=== PATIENT | male | born 1980 | race African-American/Black ===

== ENCOUNTER 2025-03-10 15:01 | Emergency (ER) | payer OTHER, SELFPAY ==
[2025-03-10 15:02] VITALS: BP 156/89; PULSE 55; TEMP 36.4; O2SAT 100; BMI 29.0
--- OUTSIDE RECORDS SUMMARY | 2025-03-10 15:10 | XMS_ITS | Encounter Summary ---
Author Organization [facility] Address [address] [place] [address] Care Team Providers Care Prosthetic Dentist Name Role Phone Nisreen Burris Primary Care Provider Encounter Details Date Type Department Care Team (Late st Contact Info) Description 03/04/2025 External Device Data STL ABSTRACTION Provider, Abstract NO ADDRESS ON FILE Social History Tobacco Use Types Packs/Day Years Used Date Smoking Tobacco: Never Passive Smoke Exposure: Never Alcohol Use Standard Drinks/Week Comments Yes 0 (1 standard drink = 0.6 oz pur e alcohol) Feeling Safe Answer Date Recorded Are you in a relationship wi th someone who hurts you emotionally and/or physically? No 02/14/2025 Sex and Gender Information Value Date Recorded Sex Assigned at Male 01/04/2023 5:34 PM CDT Legal Sex Male 3:20 AM ACURA SALES CONSULTANT Gender Identity Male 01/04/2023 5:34 PM CDT Sexual Orientation Straight 04/03/2023 12 :38 PM ACURA SALES CONSULTANT documented as of this encounter Plan of Treatment Upcoming Encounters Date Type Department Care Team (Late st Contact Info) Description 03/25/2025 3:20 PM ACURA SALES CONSULTANT Office Visit [facility] Family Medicine [place] [address] [place] [address] Anastasia Witt FNP [address] [place] [phone] 08/01/2025 2:30 PM CDT Office Visit [facility] Urology [address] [place] [address] Shonna Piper, SPECIAL EDUCATION PARA PROFESSIONAL [address] [facility] [address] [place] [address] documented as of this encounter Visit Diagnoses Not on filedocumented in this encounter Care Teams Prosthetic Dentist Relationship Specialty Start Date End Date Nisreen Burris DO [address] [place] [phone] PCP - General 03/06/09 documented as of this encounter
--- OUTSIDE RECORDS SUMMARY | 2025-03-10 15:10 | XMS_ITS | Encounter Summary ---
Author Organization [facility] Address [address] [place] [address] Care Team Providers Care Image Archivist Name Role Phone Fatuma, Nisreen L DO Primary Care Provider Reason for Referral * CT Scan (Routine) - Closed Specialty Diagnoses / Procedures Referred By Rusty t Referred To Contact Radiology Diagnoses Abnormal ultrasound Procedures CT ABDOMEN PELVIS W CONTRAST Jacey July, RUGBY UNION FOOTBALLER [address] [place] [address] Phone: tel: fax: [facility] CT Scan [place] [address] [place] [address] Phone: tel: fax: Referral ID Status Reason Start Date Expiration Date V isits Requested Visits Authorized [id number] Closed [facility] View CTS to Schedule 01/16/2025 02/16/2026 1 1 Encounter Details Date Type Department Care Team (Late st Contact Info) Description 01/16/2025 Results Follow-Up [facility] Medicine [place] [address] [place] [address] Jacey July, SCOTT [address] [place] [address] US ABDOMEN LIMITED Social History Tobacco Use Types Packs/Day Years Used Date Smoking Tobacco: Never Passive Smoke Exposure: Never Alcohol Use Standard Drinks/Week Comments Yes 0 (1 standard drink = 0.6 oz pur e alcohol) Feeling Safe Answer Date Recorded Are you in a relationship wi th someone who hurts you emotionally and/or physically? No 03/15/2023 Sex and Gender Information Value Date Recorded Sex Assigned at Male 01/04/2023 5:34 PM CDT Legal Sex Male 3:20 AM SPRING MAKER Gender Identity Male 01/04/2023 5:34 PM CDT Sexual Orientation Straight 04/03/2023 12 :38 PM SPRING MAKER documented as of this encounter Plan of Treatment Upcoming Encounters Date Type Department Care Team (Late st Contact Info) Description 03/25/2025 3:20 PM SPRING MAKER Office Visit [facility] Medicine [place] [address] [place] [address] [facility] [address] [place] [phone] 08/01/2025 2:30 PM CDT Office Visit [facility] Urology [address] [place] [phone] Shonna Piper, [address] [place] [phone] documented as of this encounter Results * CT ABDOMEN PELVIS W CONTRAST (01/24/2025 1:11 PM CDT) Anatomical Region Laterality Modality Abdomen Computed Tomogra phy 01/24/2025 12:4 6 PM CDT Impressions 01/24/2025 3:23 PM CDT IMPRESSION: There is a nonspecific round low-density walled off 3.9 cm abnormality in the left lower quadrant anterolateral to the left external iliac artery consistent with the abnormality noted on ultrasound. This is either a complex fluid collection or possibly necrotic mass. Tissue sampling is recommended. Narrative 01/24/2025 3:23 PM CDT Exam: CT ABDOMEN PELVIS W CONTRAST Date/Time of Exam: 01/24/2025 1:11 PM Reason For Exam: Abnormal ultrasound, Complex echogenicity mass along the distal left iliac vasculature. Diagnosis: Abnormal ultrasound. Technique: CT of the abdomen was performed following the administration of intravenous contrast. Contrast: 95 mL Isovue-300 Findings: Comparison is made to the ultrasound of the left inguinal region from 01/15/[address] of 08/24/2007. There is mild left basilar scarring and/or atelectasis. The lung bases are otherwise clear. Heart size is within normal limits. No significant abnormality of the liver, spleen, pancreas, gallbladder or bile ducts is noted. No abnormality of the adrenal glands or left kidney is noted. There is a tiny right renal cyst. There are no abnormally dilated loops of bowel. There is no evidence for appendicitis. No pericolonic inflammatory change is noted. No free air or free fluid is noted. The urinary bladder is unremarkable. There is a nonspecific round low-density walled off 2.8 x 2.9 x 3.9 cm abnormality in the left lower quadrant anterolateral to the left external iliac artery. No pathologic adenopathy is noted. There is a retroaortic left renal vein. The aortoiliac arteries are unremarkable. No concerning bony abnormality is noted. Procedure Note Caroline Gibbs MD - 01/24/2025 Exam: CT ABDOMEN PELVIS W CONTRAST Date/Time of Exam: 01/24/2025 1:11 PM Reason For Exam: Abnormal ultrasound, Complex echogenicity mass along the distal left iliac vasculature. Diagnosis: Abnormal ultrasound. Technique: CT of the abdomen was performed following the administration of intravenous contrast. Contrast: 95 mL Isovue-300 Findings: Comparison is made to the ultrasound of the left inguinal region from 01/15/[address] of 08/24/2007. There is mild left basilar scarring and/or atelectasis. The lung bases are otherwise clear. Heart size is within normal limits. No significant abnormality of the liver, spleen, pancreas, gallbladder or bile ducts is noted. No abnormality of the adrenal glands or left kidney is noted. There is a tiny right renal cyst. There are no abnormally dilated loops of bowel. There is no evidence for appendicitis. No pericolonic inflammatory change is noted. No free air or free fluid is noted. The urinary bladder is unremarkable. There is a nonspecific round low-density walled off 2.8 x 2.9 x 3.9 cm abnormality in the left lower quadrant anterolateral to the left external iliac artery. No pathologic adenopathy is noted. There is a retroaortic left renal vein. The aortoiliac arteries are unremarkable. No concerning bony abnormality is noted. IMPRESSION: There is a nonspecific round low-density walled off 3.9 cm abnormality in the left lower quadrant anterolateral to the left external iliac artery consistent with the abnormality noted on ultrasound. This is either a complex fluid collection or possibly necrotic mass. Tissue sampling is recommended. July [facility] CT ORDERABLES Final Result documented in this encounter Visit Diagnoses Diagnosis Abnormal ultrasound- Primary Other nonspecific (abnormal) findings on radiological and other examinations of body structure Abnormal ultrasound Other nonspecific (abnormal) findings on radiological and other examinations of body structure documented in this encounter Care Teams Image Archivist Relationship Specialty Start Date End Date Nisreen Burris DO [address] [place] [address] PCP - General 03/06/09 documented as of this encounter
--- OUTSIDE RECORDS SUMMARY | 2025-03-10 15:10 | XMS_ITS | Encounter Summary ---
Author Organization [facility] Address [address] [place] [address] Care Team Providers Care Certified Physician'S Assistant Name Role Phone FatumaNisreen cruz Primary Care Provider Encounter Details Date Type Department Care Team (Late st Contact Info) Description 03/12/2008 Emergency [facility] Emergency Department [address] [place] [phone] Ed, Physician NO ADDRESS ON FILE Harry Galloway DO NO ADDRESS ON FILE Social History Tobacco Use Types Packs/Day Years Used Date Smoking Tobacco: Never Assessed Sex and Gender Information Value Date Recorded Sex Assigned at Not on file Legal Sex Male 6:57 AM ASP WEB DEVELOPER Gender Identity Not on file Sexual Orientation Not on file documented as of this encounter Plan of Treatment Not on file documented as of this encounter Procedures Procedure Name Priority Date/Time Associated Diagnosis Comments CTA CHEST W WO CONTRAST Routine 03/12/2008 3:59 PM ASP WEB DEVELOPER POC CREATININE Routine 03/12/2008 2:43 PM ASP WEB DEVELOPER CBC WITH DIFFERENTIAL Stat 03/12/2008 2:25 PM ASP WEB DEVELOPER documented in this encounter Results * CTA CHEST W WO CONTRAST (03/12/2008 3:59 PM ASP WEB DEVELOPER) Anatomical Region Laterality Modality Chest Other 03/12/2008 3:59 PM ASP WEB DEVELOPER Narrative 03/12/2008 4:25 PM ASP WEB DEVELOPER Exam: CTA Chest Date/Time of Exam: Mar 12, 2008 3:59:04 PM History: Pulmonary embolus. Chest pain. History of aortic trauma. Hypertension. Technique: The examination was performed prior to and following bolus administration of 100 mL Optiray 350 intravenous contrast. Comparison: 08/24/2007. Findings: Precontrast images show surgical repair of aortic injury documented previously. No acute aortic pathology on today's study. Increased attenuation in the anterior mediastinum is probably residual thymic tissue or scarring postoperatively. Heart size upper limits of normal. Lungs show no consolidation, effusion or pneumothorax. Mild dependent atelectatic change or fibrosis in the left base. Postcontrast images again show no acute aortic pathology. There is suboptimal opacification of the pulmonary arterial tree for detection of pulmonary embolus but with no gross central pulmonary emboli identified. Lobar and segmental vessels cannot be evaluated due to admixture of contrast material and blood. Impression: No acute aortic pathology detected post prior surgical repair. Equivocal increased attenuation in the anterosuperior mediastinum may be residual thymic tissue versus fibrosis postoperatively. Inadequate examination for detection of pulmonary embolus due to suboptimal opacification of the pulmonary arteries. No large central pulmonary emboli are evident. Lobar and segmental pulmonary arteries cannot be evaluated due to contrast/blood admixture. Repeat study or ventilation/perfusion scintigraphy could be considered if there remains high clinical suspicion for distal pulmonary embolus. - Dictated By: Sebastian Ness D.O. Electronically Signed By: Sebastian Ness D.O. Date Signed: 03/12/08 Procedure Note Sebastian Ness - 03/12/2008 Exam: CTA Chest Date/Time of Exam: Mar 12, 2008 3:59:04 PM History: Pulmonary embolus. Chest pain. History of aortic trauma.Hypertension. Technique: The examination was performed prior to and following bolusadministration of 100 mL Optiray 350 intravenous contrast. Comparison: 08/24/2007. Findings: Precontrast images show surgical repair of aortic injurydocumented previously. No acute aortic pathology on today's study. Increased attenuation in the anteriormediastinum is probably residual thymic tissue or scarring postoperatively. Heart size upper limits ofnormal. Lungs show no consolidation, effusion or pneumothorax. Mild dependent atelectatic changeor fibrosis in the left base. Postcontrast images again show no acute aortic pathology. There issuboptimal opacification of the pulmonary arterial tree for detection of pulmonary embolus but with nogross central pulmonary emboli identified. Lobar and segmental vessels cannot be evaluated due toadmixture of contrast material and blood. Impression: No acute aortic pathology detected post prior surgical repair.Equivocal increased attenuation in the anterosuperior mediastinum may be residual thymictissue versus fibrosis postoperatively. Inadequate examination for detection of pulmonary embolusdue to suboptimal opacification of the pulmonary arteries. No large central pulmonary emboliare evident. Lobar and segmental pulmonary arteries cannot be evaluated due to contrast/bloodadmixture. Repeat study or ventilation/perfusion scintigraphy could be considered if there remainshigh clinical suspicion for distal pulmonary embolus. - Dictated By: Sebastian Ness D.O. Electronically Signed By: Sebastian Ness D.O. Date Signed: 03/12/08 us Harry Galloway DO CT ORDERABLES Final Result * POC CREATININE (03/12/2008 2:43 PM ASP WEB DEVELOPER) [facility] CREATININE POC 1.2 0.7 - 1.5 mg/dL [facility] Capillary blood specimen (specimen) 03/12/2008 2:43 PM ASP WEB DEVELOPER 03/12/2008 2:40 PM ASP WEB DEVELOPER us Harry Galloway DO POINT OF CARE TESTING Final Res ult INTERFACE SYSTEM Refer to clinic/hospital department [facility] CLIA# [id number] [address] [place] [id number] * (ABNORMAL) CBC WITH DIFFERENTIAL (03/12/2008 2:25 PM ASP WEB DEVELOPER) [facility] MONOCYTE ABSOLUTE 0.9(H) 0.1 - 0.6 K/ul [facility] MONOCYTES 12.8(H) 2.0 - 10.0 % [facility] WBC 7.1 4.5 - 11.0 K/ul [facility] MCH 25.0(L) 27.0 - 34.0 pg [facility] NEUTROPHIL ABSOLUTE 4.6 2.0 - 8.0 K/ul [facility] NEUTROPHILS 64.4 42.2 - 75.2 % [facility] HEMATOCRIT 39.7(L) 41.0 - 53.0 % [facility] EOSINOPHILS 1.5 0.0 - 7.0 % [facility] PLATELETS 219 140 - 440 K/ul [facility] EOSINOPHIL ABSOLUTE 0.1 0.0 - 0.7 K/ul [facility] RBC 5.11 4.60 - 6.20 Mil/ul [facility] LYMPHOCYTES 21.2(L) 24.0 - 44.0 % [facility] MCHC 32.2 30.0 - 35.0 g/dL [facility] LYMPHOCYTE ABSOLUTE 1.5 1.2 - 4.0 K/ul [facility] MCV 77.7(L) 84.0 - 103.0 Fl [facility] MPV 9.6 8.9 - 12.8 Fl [facility] BASOPHILS ABSOLUTE 0.0 0.0 - 0.2 K/ul [facility] BASOPHILS 0.1 0.0 - 1.0 % [facility] HEMOGLOBIN 12.8(L) 14.0 - 18.0 g/dL [facility] RDW 13.9 11.0 - 14.5 % [facility] Blood specimen (specimen) 03/12/2008 2:25 PM ASP WEB DEVELOPER 03/12/2008 2:45 PM ASP WEB DEVELOPER us Harry Galloway DO HEMATOLOGY ORDERABLES Final Res ult INTERFACE SYSTEM Refer to clinic/hospital department [facility] CLIA# [id number] [address] [place] [address] documented in this encounter Visit Diagnoses Not on filedocumented in this encounter Care Teams Certified Physician'S Assistant Relationship Specialty Start Date End Date Nisreen Burris DO [address] [place] [address] PCP - General 03/06/09 documented as of this encounter
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
--- OUTSIDE RECORDS SUMMARY | 2025-03-10 15:10 | XMS_ITS | Encounter Summary ---
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 of the cardiac silhouette is present. The left lower lobe is opacified with some air bronchograms noted. Mild opacity and volume loss are present in the right lower lobe. Multiple left rib fractures are present. Impression: 1. Opacity persists throughout the left lower lung, probably reflecting left lower lobe collapse and consolidation. Mild infiltrates or atelectasis persists in the right lower lobe. The study is largely unchanged compared with August 25, however shows definite worsening compared to August 24. - Dictated By: Hugh Lee M.D. Electronically Signed By: Hugh Lee M.D. Date Signed: 08/27/07 Procedure Note Hugh Lee - 08/27/2007 The left chest tube is directed toward the apex. A second left chest isdirected toward the hilum. Mild enlargement of the cardiac silhouette is present. The left lower lobe isopacified with some air bronchograms noted. Mild opacity and volume loss are present in the rightlower lobe. Multiple left rib fractures are present. Impression: 1. Opacity persists throughout the left lower lung, probably reflectingleft lower lobe collapse and consolidation. Mild infiltrates or atelectasis persists in the right lowerlobe. The study is largely unchanged compared with August 25, however shows definite worseningcompared to August 24. - Dictated By: Hugh Lee M.D. Electronically Signed By: Hugh Lee M.D. Date Signed: 08/27/07 us Harry Borjas MD DIAGNOSTIC IMAGING ORDERABLES Final Result * (ABNORMAL) POC GLUCOSE (08/26/2007 11:03 PM CDT) [facility] GLUCOSE POC 142(H) 60 - 100 mg/dL [facility] Venous blood specimen (specimen) 08/26/2007 11:03 PM CDT 08/29/2007 6:25 AM CDT us Harry Borjas MD POINT OF CARE TESTING Final R esult [facility] [address] [place] [address] * (ABNORMAL) CBC WITH DIFFERENTIAL (08/26/2007 9:28 PM CDT) [facility] BASOPHILS ABSOLUTE 0.0 0.0 - 0.2 K/ul [facility] WBC 10.6 4.5 - 11.0 K/ul [facility] NEUTROPHILS 80.1(H) 42.2 - 75.2 % [facility] MCH 25.2(L) 27.0 - 34.0 pg [facility] LYMPHOCYTE ABSOLUTE 0.9(L) 1.2 - 4.0 K/ul [facility] HEMATOCRIT 26.4(L) 41.0 - 53.0 % [facility] PLATELETS 150 140 - 440 K/ul [facility] BASOPHILS 0.1 0.0 - 1.0 % [facility] RBC 3.33(L) 4.60 - 6.20 Mil/ul [facility] MCHC 31.8 30.0 - 35.0 g/dL [facility] MONOCYTE ABSOLUTE 1.3(H) 0.1 - 0.6 K/ul [facility] LYMPHOCYTES 8.0(L) 24.0 - 44.0 % [facility] PERIPHERAL BLOOD SMEAR REVIEW Automated Diff [facility] MCV 79.3(L) 84.0 - 103.0 Fl [facility] NEUTROPHIL ABSOLUTE 8.5(H) 2.0 - 8.0 K/ul [facility] MPV 9.7 8.9 - 12.8 Fl [facility] HEMOGLOBIN 8.4(L) 14.0 - 18.0 g/dL [facility] MONOCYTES 11.8(H) 2.0 - 10.0 % [facility] RDW 14.4 11.0 - 14.5 % [facility] Blood specimen (specimen) 08/26/2007 9:28 PM CDT 08/26/2007 9:32 PM CDT us Harry Borjas MD HEMATOLOGY ORDERABLES Final R esult [facility] [address] [place] [address] * MAGNESIUM LEVEL (08/26/2007 9:28 PM CDT) MAGNESIUM 2.4 1.7 - 2.4 mg/dL [facility] Blood specimen (specimen) 08/26/2007 9:28 PM CDT 08/26/2007 9:32 PM CDT us Harry Borjas MD CHEMISTRY ORDERABLES Final Re sult Performing Organization Address [facility] Number [facility] [address] [place] [address] * POTASSIUM LEVEL (08/26/2007 9:28 PM CDT) POTASSIUM 4.8 3.5 - 5.0 mEq/L [facility] Blood specimen (specimen) 08/26/2007 9:28 PM CDT 08/26/2007 9:32 PM CDT us Harry Borjas MD CHEMISTRY ORDERABLES Final Re sult Performing Organization Address [facility] Phone Number [facility] [address] [place] [address] * (ABNORMAL) POC GLUCOSE (08/26/2007 4:56 PM CDT) [facility] GLUCOSE POC 101(H) 60 - 100 mg/dL [facility] Venous blood specimen (specimen) 08/26/2007 4:56 PM CDT 08/29/2007 6:25 AM CDT us Harry Borjas MD POINT OF CARE TESTING Final R esult Performing Organization Address [facility] Phone Number [facility] [address] [place] [address] * (ABNORMAL) POC GLUCOSE (08/26/2007 11:12 AM CDT) GLUCOSE POC 133(H) 60 - 100 mg/dL [facility] Venous blood specimen (specimen) 08/26/2007 11:12 AM CDT 08/29/2007 7:14 AM CDT us Harry Borjas MD POINT OF CARE TESTING Final R domenico Performing Organization Address [facility] de Phone Number [facility] [address] [place] [address] * (ABNORMAL) POC GLUCOSE (08/26/2007 5:07 AM CDT) GLUCOSE POC 122(H) 60 - 100 mg/dL [facility] Venous blood specimen (specimen) 08/26/2007 5:07 AM CDT 08/29/2007 6:25 AM CDT us Harry Borjas MD POINT OF CARE TESTING Final R domenico Performing Organization Address [facility] de Phone Number [facility] [address] [place] [address] * (ABNORMAL) BASIC METABOLIC PANEL (08/26/2007 3:57 AM CDT) BUN 13 9 - 20 mg/dL [facility] CO2 26 22 - 32 mmol/l [facility] POTASSIUM 4.6 3.5 - 5.0 mEq/L [facility] OSMOLALITY, CALCULATED 298(H) 275 - 295 mOsm/Kg [facility] CREATININE 1.2 0.7 - 1.5 mg/dL [facility] CALCIUM 8.0(L) 8.4 - 10.5 mg/dL [facility] GLUCOSE 118(H) 70 - 110 mg/dL [facility] CHLORIDE 107 95 - 110 mEq/L [facility] ANION GAP 16 9 - 20 mEq/L [facility] SODIUM 144 136 - 145 mEq/L [facility] Blood specimen (specimen) 08/26/2007 3:57 AM CDT 08/26/2007 4:04 AM CDT us Harry Borjas MD CHEMISTRY ORDERABLES Final Re sult Performing Organization Address [facility] de Phone Number [facility] [address] [place] [address] * (ABNORMAL) CBC WITH DIFFERENTIAL (08/26/2007 3:57 AM CDT) MCV 79.0(L) 84.0 - 103.0 Fl [facility] BASOPHILS 0.1 0.0 - 1.0 % [facility] MPV 9.7 8.9 - 12.8 Fl [facility] BASOPHILS ABSOLUTE 0.0 0.0 - 0.2 K/ul [facility] HEMOGLOBIN 8.4(L) 14.0 - 18.0 g/dL [facility] MONOCYTES 11.6(H) 2.0 - 10.0 % [facility] RDW 14.5 11.0 - 14.5 % [facility] MONOCYTE ABSOLUTE 1.0(H) 0.1 - 0.6 K/ul [facility] WBC 8.9 4.5 - 11.0 K/ul [facility] NEUTROPHILS 80.5(H) 42.2 - 75.2 % [facility] MCH 25.6(L) 27.0 - 34.0 pg [facility] NEUTROPHIL ABSOLUTE 7.2 2.0 - 8.0 K/ul [facility] HEMATOCRIT 25.9(L) 41.0 - 53.0 % [facility] PLATELETS 127(L) 140 - 440 K/ul [facility] EOSINOPHIL ABSOLUTE 0.0 0.0 - 0.7 K/ul [facility] EOSINOPHILS 0.1 0.0 - 7.0 % [facility] PERIPHERAL BLOOD SMEAR REVIEW Automated Diff [facility] RBC 3.28(L) 4.60 - 6.20 Mil/ul [facility] MCHC 32.4 30.0 - 35.0 g/dL [facility] LYMPHOCYTE ABSOLUTE 0.7(L) 1.2 - 4.0 K/ul [facility] LYMPHOCYTES 7.7(L) 24.0 - 44.0 % [facility] Blood specimen (specimen) 08/26/2007 3:57 AM CDT 08/26/2007 4:04 AM CDT us Harry Borjas MD HEMATOLOGY ORDERABLES Final R esult [facility] [address] [place] [address] * XR CHEST PA OR AP (08/26/2007 3:43 AM CDT) Anatomical Region Laterality Modality Chest Other 08/26/2007 3:43 AM CDT Narrative 08/26/2007 12:39 PM CDT Exam: Chest - Portable Date/Time of Exam: Aug 26, 2007 3:43:04 AM History: Post-operative. Findings: Comparison dated 08/25/07 at 0350 hours. Two chest tubes remain in place on the left. There has been interval increase in atelectasis in the left lower lobe. The cardiac silhouette appears generous but this appearance is probably accentuated by atelectatic collapse of the medial portion of the lingula against the left heart border. I see no evidence of pneumothorax. - Dictated By: Cole Ruelas M.D. Electronically Signed By: Cole Ruelas M.D. Date Signed: 08/26/07 GRB Procedure Note Emilio Ruelas - 08/26/2007 Exam: Chest - Portable Date/Time of Exam: Aug 26, 2007 3:43:04 AM History: Post-operative. Findings: Comparison dated 08/25/07 at 0350 hours. Two chest tubes remainin place on the left. There has been interval increase in atelectasis in the left lower lobe. The cardiacsilhouette appears generous but this appearance is probably accentuated by atelectatic collapse of themedial portion of the lingula against the left heart border. I see no evidence of pneumothorax. - Dictated By: Cole Ruelas M.D. Electronically Signed By: Cole Ruelas M.D. Date Signed: 08/26/07 GRB us Harry Borjas MD DIAGNOSTIC IMAGING ORDERABLES Final Result * (ABNORMAL) POC GLUCOSE (08/25/2007 11:49 PM CDT) GLUCOSE POC 136(H) 60 - 100 mg/dL [facility] Venous blood specimen (specimen) 08/25/2007 11:49 PM CDT 08/27/2007 6:05 PM CDT Harry Borjas MD POINT OF CARE TESTING Final R esult Performing Organization Address [facility] Co de Phone Number [facility] [address] [place] [address] * POC GLUCOSE (08/25/2007 6:24 PM CDT) GLUCOSE POC 98 60 - 100 mg/dL [facility] Venous blood specimen (specimen) 08/25/2007 6:24 PM CDT 08/27/2007 6:05 PM CDT us Harry Borjas MD POINT OF CARE TESTING Final R esult Performing Organization Address [facility] de Phone Number [facility] [address] [place] [address] * (ABNORMAL) POC GLUCOSE (08/25/2007 2:53 PM CDT) GLUCOSE POC 113(H) 60 - 100 mg/dL [facility] Venous blood specimen (specimen) 08/25/2007 2:53 PM CDT 08/27/2007 6:05 PM CDT Harry Borjas MD POINT OF CARE TESTING Final R esult Performing Organization Address [facility] de Phone Number [facility] [address] [place] [address] * POC GLUCOSE (08/25/2007 1:53 PM CDT) GLUCOSE POC 89 60 - 100 mg/dL [facility] Venous blood specimen (specimen) 08/25/2007 1:53 PM CDT 08/27/2007 6:05 PM CDT us Harry Borjas MD POINT OF CARE TESTING Final R esult Performing Organization Address [facility] Phone Number [facility] [address] [place] [address] * (ABNORMAL) POC GLUCOSE (08/25/2007 12:52 PM CDT) GLUCOSE POC 114(H) 60 - 100 mg/dL [facility] Venous blood specimen (specimen) 08/25/2007 12:52 PM CDT 08/27/2007 6:05 PM CDT us Harry Borjas MD POINT OF CARE TESTING Final [facility] Performing Organization Address [facility] Phone Number [facility] [address] [place] [address] * (ABNORMAL) POC GLUCOSE (08/25/2007 11:47 AM CDT) GLUCOSE POC 101(H) 60 - 100 mg/dL [facility] Venous blood specimen (specimen) 08/25/2007 11:47 AM CDT 08/27/2007 6:05 PM CDT us Harry Borjas MD POINT OF CARE TESTING Final R domenico Performing Organization Address [facility] de Phone Number [facility] [address] [place] [address] * (ABNORMAL) POC GLUCOSE (08/25/2007 10:59 AM CDT) GLUCOSE POC 101(H) 60 - 100 mg/dL [facility] Venous blood specimen (specimen) 08/25/2007 10:59 AM CDT 08/27/2007 6:05 PM CDT us Harry Borjas MD POINT OF CARE TESTING Final R esult Performing Organization Address [facility] de Phone Number [facility] [address] [place] [address] * (ABNORMAL) POC GLUCOSE (08/25/2007 10:16 AM CDT) GLUCOSE POC 101(H) 60 - 100 mg/dL [facility] Venous blood specimen (specimen) 08/25/2007 10:16 AM CDT 08/27/2007 6:05 PM CDT us Harry Borjas MD POINT OF CARE TESTING Final [facility] Performing Organization Address [facility] de Phone Number [facility] [address] [place] [address] * (ABNORMAL) POC GLUCOSE (08/25/2007 9:10 AM CDT) GLUCOSE POC 133(H) 60 - 100 mg/dL [facility] Venous blood specimen (specimen) 08/25/2007 9:10 AM CDT 08/29/2007 6:25 AM CDT us Harry Borjas MD POINT OF CARE TESTING Final [facility] Performing Organization Address [facility] de Phone Number [facility] [address] [place] [address] * (ABNORMAL) POC GLUCOSE (08/25/2007 7:56 AM CDT) GLUCOSE POC 121(H) 60 - 100 mg/dL [facility] Venous blood specimen (specimen) 08/25/2007 7:56 AM CDT 08/27/2007 6:05 PM CDT us Harry Borjas MD POINT OF CARE TESTING Final [facility] Performing Organization Address [facility] de Phone Number [facility] [address] [place] [address] * XR CHEST PA OR AP (08/25/2007 6:03 AM CDT) Anatomical Region Laterality Modality Chest Other 08/25/2007 6:03 AM CDT Narrative 08/25/2007 11:31 AM CDT Exam: Chest - Portable Date/Time of Exam: Aug 25, 2007 6:03:05 AM History: Post-operative. Findings: Comparison dated 08/25/2007 at 0032 hours. The ET tube and a left-sided chest tube remain in place. The left costophrenic angle is excluded from the radiograph. Postoperative changes of left thoracotomy are again noted. I do not see a pneumothorax. The cardiac silhouette is stable and within normal limits. The right lung remains essentially clear with the exception of some vague opacity at the right costophrenic angle which could represent minimal pleural fluid or a small amount of atelectasis. - Dictated By: Cole Ruelas M.D. Electronically Signed By: Cole Ruelas M.D. Date Signed: 08/25/07 GRB Procedure Note Emilio Ruelas - 08/25/2007 Exam: Chest - Portable Date/Time of Exam: Aug 25, 2007 6:03:05 AM History: Post-operative. Findings: Comparison dated 08/25/2007 at 0032 hours. The ET tube and aleft-sided chest tube remain in place. The left costophrenic angle is excluded from the radiograph.Postoperative changes of left thoracotomy are again noted. I do not see a pneumothorax. The cardiacsilhouette is stable and within normal limits. The right lung remains essentially clear with the exceptionof some vague opacity at the right costophrenic angle which could represent minimal pleural fluid or asmall amount of atelectasis. - Dictated By: Cole Ruelas M.D. Electronically Signed By: Cole Ruelas M.D. Date Signed: 08/25/07 GRB Harry Borjas MD DIAGNOSTIC IMAGING ORDERABLES Final Result * (ABNORMAL) POC GLUCOSE (08/25/2007 5:28 AM CDT) Pathologist [facility] GLUCOSE POC 150(H) 60 - 100 mg/dL [facility] Venous blood specimen (specimen) 08/25/2007 5:28 AM CDT 08/29/2007 6:25 AM CDT us Harry Borjas MD POINT OF CARE TESTING Final R esult Performing Organization Address [facility] de Phone Number [facility] [address] [place] [address] * MRSA CULTURE (08/25/2007 3:26 AM CDT) FINAL REPORT Culture screen for MRSA negative INTERFACE SYSTEM 08/25/2007 3:26 AM CDT 08/25/2007 4:57 AM CDT us Harry Borjas MD MICROBIOLOGY - GENERAL ORDERA BLES Final Result Performing Organization Address [facility] Phone Number INTERFACE SYSTEM Refer to clinic/hospital department * (ABNORMAL) BASIC METABOLIC PANEL (08/25/2007 3:26 AM CDT) ANION GAP 12 9 - 20 mEq/L [facility] SODIUM 141 136 - 145 mEq/L [facility] BUN 14 9 - 20 mg/dL [facility] CO2 24 22 - 32 mmol/l [facility] POTASSIUM 4.9 3.5 - 5.0 mEq/L [facility] OSMOLALITY, CALCULATED 295 275 - 295 mOsm/Kg [facility] CREATININE 1.4 0.7 - 1.5 mg/dL [facility] CALCIUM 7.9(L) 8.4 - 10.5 mg/dL [facility] GLUCOSE 161(H) 70 - 110 mg/dL [facility] CHLORIDE 110 95 - 110 mEq/L [facility] Blood specimen (specimen) 08/25/2007 3:26 AM CDT 08/25/2007 3:31 AM CDT us Harry Borjas MD CHEMISTRY ORDERABLES Final Re sult Performing Organization Address [facility] de Phone Number [facility] [address] [place] [address] * (ABNORMAL) CBC WITH DIFFERENTIAL (08/25/2007 3:26 AM CDT) MONOCYTE ABSOLUTE 0.9(H) 0.1 - 0.6 K/ul [facility] WBC 9.3 4.5 - 11.0 K/ul [facility] NEUTROPHILS 78.7(H) 42.2 - 75.2 % [facility] MCH 25.1(L) 27.0 - 34.0 pg [facility] NEUTROPHIL ABSOLUTE 7.3 2.0 - 8.0 K/ul [facility] HEMATOCRIT 32.4(L) 41.0 - 53.0 % [facility] PLATELETS 162 140 - 440 K/ul [facility] EOSINOPHIL ABSOLUTE 0.0 0.0 - 0.7 K/ul [facility] EOSINOPHILS 0.1 0.0 - 7.0 % [facility] RBC 4.15(L) 4.60 - 6.20 Mil/ul [facility] MCHC 32.1 30.0 - 35.0 g/dL [facility] LYMPHOCYTE ABSOLUTE 1.0(L) 1.2 - 4.0 K/ul [facility] LYMPHOCYTES 10.9(L) 24.0 - 44.0 % [facility] MCV 78.1(L) 84.0 - 103.0 Fl [facility] BASOPHILS 0.2 0.0 - 1.0 % [facility] MPV 9.9 8.9 - 12.8 Fl [facility] BASOPHILS ABSOLUTE 0.0 0.0 - 0.2 K/ul [facility] HEMOGLOBIN 10.4(L) 14.0 - 18.0 g/dL [facility] MONOCYTES 10.1(H) 2.0 - 10.0 % [facility] RDW 14.2 11.0 - 14.5 % [facility] Blood specimen (specimen) 08/25/2007 3:26 AM CDT 08/25/2007 3:31 AM CDT us Harry Borjas MD HEMATOLOGY ORDERABLES Final R eskate Performing Organization Address [facility] Co de Phone Number [facility] [address] [place] [address] * (ABNORMAL) POC GLUCOSE (08/25/2007 2:25 AM CDT) GLUCOSE POC 159(H) 60 - 100 mg/dL [facility] Venous blood specimen (specimen) 08/25/2007 2:25 AM CDT 08/29/2007 6:25 AM CDT Harry Borjas MD POINT OF CARE TESTING Final Greg acuña Performing Organization Address [facility] de Phone Number [facility] [address] [place] [address] * XR CHEST PA OR AP (08/25/2007 12:33 AM CDT) Anatomical Region Laterality Modality Chest Other 08/25/2007 12:3 3 AM CDT Narrative 08/26/2007 7:10 AM CDT Ordered by Tom Smith Exam: Chest - Portable Date/Time of Exam: Aug 25, 2007 12:33:00 AM History: Intra-operative. Findings: Comparison dated 08/25/07 at 0032 hours. The left-sided chest tubes are stable. The cardiac silhouette is unchanged. Surgical skin clips are again noted over the upper left hemithorax. There is some minimal volume loss or atelectasis persistent in the mid right lung. Mild prominence of the width of the superior mediastinum and irregular delineation of the left margin of the superior mediastinum are again noted. - Dictated By: Cole Ruelas M.D. Electronically Signed By: Cole Ruelas M.D. Date Signed: 08/26/07 GRB Procedure Note Emilio Ruelas - 08/26/2007 Ordered by Tom Smith Exam: Chest - Portable Date/Time of Exam: Aug 25, 2007 12:33:00 AM History: Intra-operative. Findings: Comparison dated 4/26/08 at 0032 hours. The left-sided chesttubes are stable. The cardiac silhouette is unchanged. Surgical skin clips are again noted over theupper left hemithorax. There is some minimal volume loss or atelectasis persistent in the mid right lung.Mild prominence of the width of the superior mediastinum and irregular delineation of the left margin ofthe superior mediastinum are again noted. - Dictated By: Cole Ruelas M.D. Electronically Signed By: Cole Ruelas M.D. Date Signed: 08/26/07 [facility] Historical Provider DIAGNOSTIC IMAGING ORDERABLE S Final Result * XR CHEST PA OR AP (08/24/2007 7:00 PM CDT) Anatomical Region Laterality Modality Chest Other 08/24/2007 7:00 PM CDT Narrative 07/02/2008 12:59 PM [employer] DIRECT[employer] AP pelvis, 3 views right wrist, PA chest: 08/24/2007No apparent acute osseous injury or subluxation of right wrist. Mild negative ulnar variance. Given artifact from overlying trauma board, no gross evidence for acute osseous injury of pelvis. Both femur heads normally located. Prominent superior mediastinum. Cardiovascular silhouette otherwise unremarkable. Lungs grossly unremarkable. Impression: Prominent superior mediastinum of which further evaluation with CT may be of benefit as clinically warranted. - Dictated By: Elaine Witt M.D. Electronically Signed By: Elaine Witt M.D. Date Signed: 08/24/07 Procedure Note Provider, Historical - 07/03/2008 AP pelvis, 3 views right wrist, PA chest: 08/24/2007No apparent acute osseous injury or subluxation of right wrist.Mild negative ulnar variance. Given artifact from overlying trauma board, no gross evidence for acuteosseous injury of pelvis. Both femur heads normally located. Prominent superior mediastinum.Cardiovascular silhouette otherwise unremarkable. Lungs grossly unremarkable. Impression: Prominent superior mediastinum of which further evaluation with CT may beof benefit as clinically warranted. - Dictated By: Elaine Witt M.D. Electronically Signed By: Elaine Witt M.D. Date Signed: 08/24/07 us Physician Sj Ed DIAGNOSTIC IMAGING ORDERABLES Fi nal Result * XR WRIST 3+ VW RIGHT (08/24/2007 7:00 PM CDT) Anatomical Region Laterality Modality Wrist / Hand Other 08/24/2007 7:00 PM CDT Narrative 07/07/2008 5:16 AM CDT AP pelvis, 3 views right wrist, PA chest: 08/24/2007No apparent acute osseous injury or subluxation of right wrist. Mild negative ulnar variance. Given artifact from overlying trauma board, no gross evidence for acute osseous injury of pelvis. Both femur heads normally located. Prominent superior mediastinum. Cardiovascular silhouette otherwise unremarkable. Lungs grossly unremarkable. Impression: Prominent superior mediastinum of which further evaluation with CT may be of benefit as clinically warranted. - Dictated By: Elaine Witt M.D. Electronically Signed By: Elaine Witt M.D. Date Signed: 08/24/07 Procedure Note Provider, Historical - 07/16/2008 AP pelvis, 3 views right wrist, PA chest: 08/24/2007No apparent acute osseous injury or subluxation of right wrist.Mild negative ulnar variance. Given artifact from overlying trauma board, no gross evidence for acuteosseous injury of pelvis. Both femur heads normally located. Prominent superior mediastinum.Cardiovascular silhouette otherwise unremarkable. Lungs grossly unremarkable. Impression: Prominent superior mediastinum of which further evaluation with CT may beof benefit as clinically warranted. - Dictated By: Elaine Witt M.D. Electronically Signed By: Elaine Witt M.D. Date Signed: 08/24/07 us Physician Ed DIAGNOSTIC IMAGING ORDERABLES Fi nal Result * CTA CHEST W WO CONTRAST (08/24/2007 6:45 PM CDT) Anatomical Region Laterality Modality Chest Other 08/24/2007 6:45 PM CDT Narrative 08/24/2007 9:19 PM CDT Ordered by Tom Smith CT of the chest; abdomen and pelvis CT with IV contrast 08/24/2007. Axial tomograms obtained through the chest pre- and post administration of 100 mL of Optiray 350 intravenous contrast. Axial tomograms obtained through the abdomen and pelvis with IV contrast. 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 Accompanying prominent sized left sided mediastinal hematoma with free fluid/blood surrounding descending portion of thoracic aorta. Free fluid/blood also within posterior mediastinum. Dissection of small amount of free fluid/blood more inferiorly within both retrocrural spaces and within central retroperitoneum. Moderate amount of fluid within pleural space of dependent aspect of left hemithorax. Mild pleural reaction within dependent aspect of right hemithorax. Visualized central tracheobronchial tree unremarkable. No pericardial effusion. Mild to moderate dependent atelectasis within left posterior lung. Solid upper intra-abdominal organs unremarkable. Nonspecific appearing gallbladder. Abdominal aorta intact. Paredes catheter within bladder. Nonspecific is mild free fluid within pelvic cul-de-sac. Bowel structures nonspecific. No apparent CT evidence for fracture of imaged skeleton. 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 No apparent evidence for acute injury within abdomen/pelvis. - Dictated By: Elaine Witt M.D. Electronically Signed By: Elaine Witt M.D. Date Signed: 08/24/07 JAW Procedure Note Elaine Witt S - 08/24/[address] of the chest; abdomen and pelvis CT with IV contrast 08/24/2007. Axial tomograms obtained through the chest pre- and post administration of100 mL of Optiray 350 intravenous contrast. Axial tomograms obtained through the abdomen andpelvis with IV contrast. Traumatic dissection/rupture of proximal half of descending thoracic aortabeginning just beyond the origin of left subclavian artery. Accompanying prominent sized left sidedmediastinal hematoma with free fluid/blood surrounding descending portion of thoracic aorta. Freefluid/blood also within posterior mediastinum. Dissection of small amount of free fluid/blood moreinferiorly within both retrocrural spaces and within central retroperitoneum. Moderate amount of fluid withinpleural space of dependent aspect of left hemithorax. Mild pleural reaction within dependent aspectof right hemithorax. Visualized central tracheobronchial tree unremarkable. No pericardial effusion. Mildto moderate dependent atelectasis within left posterior lung. Solid upper intra-abdominal organs unremarkable. Nonspecific appearinggallbladder. Abdominal aorta intact. Paredes catheter within bladder. Nonspecific is mild free fluidwithin pelvic cul-de-sac. Bowel structures nonspecific. No apparent CT evidence for fracture of imagedskeleton. Impression: Traumatic dissection/rupture of proximal half of descendingthoracic aorta with accompanying mediastinal hematoma and left sided pleural fluid. No apparent evidencefor acute injury within abdomen/pelvis. - Dictated By: Elaine Witt M.D. Electronically Signed By: Elaine Witt M.D. Date Signed: 08/24/07 [facility] Provider CT ORDERABLES Final Result * CT HEAD WO CONTRAST (08/24/2007 6:45 PM CDT) Anatomical Region Laterality Modality Head Other 08/24/2007 6:45 PM CDT Narrative 08/24/2007 9:10 PM CDT Ordered by Tom Smith Exam: CT Head without Contrast Date/Time of Exam: Aug 24, 2007 6:45:19 PM History: Please see admitting diagnosis. Axial tomograms obtained through the head without IV contrast. No intracranial hemorrhage or abnormal extra-axial fluid collection. No midline shift or mass effect. Ventricular system and basilar cisterns intact. Visualized paranasal sinuses unremarkable. Impression: No apparent acute intracranial pathology. - Dictated By: Elaine Witt M.D. Electronically Signed By: Elaine Witt M.D. Date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
--- OUTSIDE RECORDS SUMMARY | 2025-03-10 15:10 | XMS_ITS | Encounter Summary ---
Author Organization [facility] Address [address] [place] [address] Care Team Providers Care Cable Respooler Name Role Phone Nisreen Burris Primary Care Provider Encounter Details Date Type Department Care Team (Latest Contact Info) Description 01/19/2025 Results Follow-Up [facility] [place] [address] [place] [address] Anastasia Witt [facility] [address] [place] [address] GC/CHLAMYDIA/TRICHOMO DAVE, UROGENITAL, SYPHILIS SEROLOGY W/REFLEX, ACUTE HEPATITIS PANEL, HIV DETECTION W/REFLX CONFIRMATION Social History Tobacco Use Types Packs/Day Years [...] PM CDT Legal Sex Male 3:20 AM CONFERENCE CENTER MANAGER Gender Identity Male 01/04/2023 5:34 PM CDT Sexual Orientation Straight 04/03/2023 12 :38 PM CONFERENCE CENTER MANAGER documented as of this encounter Plan of Treatment Upcoming Encounters Date Type Department Care Team (Late st Contact Info) Description 03/25/2025 3:20 PM CONFERENCE CENTER MANAGER Office Visit [facility] [address] [place] [address] Anastasia Witt [facility] [address] [place] [address] 08/01/2025 2:30 PM CDT Office Visit [facility] Urology [address] [place] [address] Shonna Piper, [facility] [address] [facility] [address] [place] [address] documented as of this encounter Visit Diagnoses Not on filedocumented in this encounter Care Teams Cable Respooler Relationship Specialty Start Date End Date Nisreen Burris DO [address] [place] [address] PCP - General 03/06/09 documented as of this encounter
--- OUTSIDE RECORDS SUMMARY | 2025-03-10 15:10 | XMS_ITS | Clinical Summary ---
Author Organization [facility] Address [address] [place] [id number] Care Team Providers Care Stockroom Supervisor Name Role Phone Unavailable Primary Care Provider Unavailabl e Social History Tobacco Use Types Packs/Day Years Used Date Smoking Tobacco: Never Assessed Sex and Gender Information Value Date Recorded Sex Assigned at Not on file Legal Sex Male 12:16 PM CDT Gender Identity Not on file Sexual Orientation Not on file Last Filed Vital Signs Vital Sign Reading Time Taken Comments Blood Pressure 122/76 11/12/2024 8:14 AM CDT Pulse - - Temperature - - Respiratory Rate - - Oxygen Saturation - - Inhaled Oxygen Concentration - - Weight 114.5 kg (252 lb 6.4 oz) 11/12/2024 8:14 AM CDT Height 195.6 cm (6' 5 ) 11/12/2024 8:14 AM CDT Body Mass Index 29.93 11/12/2024 8:14 AM CDT Plan of Treatment Health Maintenance Due Date Last Done Comments HIV Screening 1981 Hepatitis C Screening ages 1 8 to 79 once 1981 MMR VACCINES (1 of 1 - Stand lainey series) 1982 DEPRESSION SCREENING 1993 Varicella Vaccine (1 of 2 - 13+ 2-dose series) 1994 HPV VACCINES (1 - Male 3-dos e series) 1996 BMI Above/Below Normal Parameters 11/19/1999 ADULT TETANUS 2000 HEPATITIS B VACCINES (1 of 3 - 19+ 3-dose series) 2000 Influenza Vaccine 11/29/2024 COVID-19 Immunization (1 - 2 024-25 season) 2024 YEARLY WELLNESS EXAM 01/11/2025 01/12/2024 LIPID TESTING 11/13/2025 11/13/2024 Diabetes Screening 11/14/2027 11/13/2024 Zoster Vaccine (Recombinant Vaccine) (1 of 2) 11/19/2031 HEPATITIS A VACCINES Aged Out No long er eligible based on patient's age to complete this topic HIB VACCINES Aged Out No longer eligi ble based on patient's age to complete this topic IPV VACCINES Aged Out No longer eligi ble based on patient's age to complete this topic MENINGOCOCCAL VACCINE Aged Out No av kennedy eligible based on patient's age to complete this topic Meningococcal B Vaccine Aged Out No l onger eligible based on patient's age to complete this topic Pneumococcal Vaccine: Peds t o 50 & At-Risk Patients Aged Out No longer eligible b ased on patient's age to complete this topic ROTAVIRUS VACCINES Aged Out No longer eligible based on patient's age to complete this topic Procedures Procedure Name Priority Date/Time Associated Diagnosis Comments HEMOGLOBIN A1C Routine 11/13/2024 9:34 AM CDT Wellness examination LIPID PROFILE Routine 11/13/2024 9:34 AM CDT Wellness examination from Last 3 Months or Most Recently Relevant to Health Maintenance Results * HEMOGLOBIN A1C (11/13/2024 9:34 AM CDT) Blood specimen (specimen) Marilu Galaviz NP CHEMISTRY ORDERABLES Final Result Performing Organization Address [facility] de Phone Number [facility] [address] [place] [address] * LIPID PROFILE (11/13/2024 9:34 AM CDT) Blood specimen (specimen) Marilu Galaviz NP CHEMISTRY ORDERABLES Final Result Performing Organization Address [facility] Co de Phone Number [facility] [address] [place] [address] from Last 3 Months or Most Recently Relevant to Health Maintenance [place] [address]
--- OUTSIDE RECORDS SUMMARY | 2025-03-10 15:10 | XMS_ITS | Clinical Summary ---
Author Organization [facility] Address [address] [place] [address] Care Team Providers Care Program Assistant Name Role Phone Nisreen Burris Primary Care Provider Allergies Active Allergy Reactions Criticality Noted Date Comments Morphine Itching Low 02/24/2009 Shellfish Containing Products Nausea and Vomiting Low 03/06/2009 Medications ibuprofen (MOTRIN) 800 mg tablet Take 800 mg by mouth every 6 hours as needed for Pain, Mild. Active triamcinolone acetonide (KENALOG) 0.1 % OintmentIndicati ons:Eczema, unspecified type,Irritation of penis Apply to area every other day until healed. 30 Gram 1 06/25/2020 Active valACYclovir (VALTREX) 1 gram tabletIndication s:HSV-2 infection,HSV-1 (herpes simplex virus 1) infection Take 1 Tablet (1,000 mg) by mouth daily. 30 Tablet 11 09/27/2020 Active Active Problems Problem Noted Date Diagnosed Date Benign essential HTN 07/06/2015 Pericardial effusion 08/05/2009 Chest pain 03/16/2009 Acute pericarditis, unspecified 03/16/2009 Social History Tobacco Use Types Packs/Day Years Used Date Smoking Tobacco: Never Alcohol Use Standard Drinks/Week Comments Yes 0 (1 standard drink = 0.6 oz pur e alcohol) occasional Sex and Gender Information Value Date Recorded Sex Assigned at Not on file Legal Sex Male 6:57 AM NURSING ASSOCIATE Gender Identity Not on file Sexual Orientation Not on file Last Filed Vital Signs Vital Sign Reading Time Taken Comments Blood Pressure 125/77 09/25/2020 11:47 AM CDT Pulse 63 09/25/2020 11:47 AM CDT Temperature 36.5 C (97.7 F) 09/25/2020 11:47 AM CDT Respiratory Rate 20 02/20/2012 11:4 1 AM CDT Oxygen Saturation 99% 09/25/2020 11: 47 AM CDT Inhaled Oxygen Concentration - - Weight 118.1 kg (260 lb 6.4 oz) 021 11:47 AM CDT Height 195.6 cm (6' 5 ) 09/25/2020 11:4 7 AM CDT Body Mass Index 30.88 09/25/2020 11:47 AM CDT Plan of Treatment Health Maintenance Due Date Last Done Comments Pre-Diabetes and Diabetes Screening 1981 DTAP/TDAP/TD VACCINES (1 - Tdap) 2000 HEPATITIS B VACCINES (1 of 3 - 19+ 3-dose series) 10/30 HPV VACCINES (1 - 3-dose SCDM series) 2008 Preventative Visit- Commercial 05/01/2024 01/12/2024 INFLUENZA VACCINE (#1) [address] [address] Advance Directives For more information, please contact: [phone] * Full Code (Latest Code Status on File) Date Activated Date Inactivated Comments 08/05/2009 10:58 AM 08/07/2009 5:45 PM * Full Code Date Activated Date Inactivated Comments 08/05/2009 8:52 AM 08/05/2009 10:58 AM * Full Code Date Activated Date Inactivated Comments 08/04/2009 8:19 PM 08/05/2009 8:52 AM * Full Code Date Activated Date Inactivated Comments 08/03/2009 2:22 PM 08/04/2009 8:19 PM Care Teams Program Assistant Relationship Specialty Start Date End Date Nisreen Burris DO [address] [place] [id number] PCP - General 03/06/09
--- OUTSIDE RECORDS SUMMARY | 2025-03-10 15:10 | XMS_ITS | Clinical Summary ---
Author Organization [facility] Address [address] [place] [address] Care Team Providers Care Ortho Assistant Name Role Phone Nisreen Burris Primary Care Provider Allergies Active Allergy Reactions Criticality Noted Date Comments Morphine Itching Low 02/24/2009 Shellfish Containing Products Nausea and Vomiting Low 03/06/2009 Medications multivitamin (DAILY-MEENA) tablet Take 1 Tablet by mouth daily. Active naloxone (NARCAN) 4 mg/spray [place]amie, Non-Aerosol Administer 1 [place]amie (4 mg) in one nostril (alternate nostril with each dose) one time as needed for Respiration (slowed with opioid use). Push plunger to administer. Call 911. May repeat dose, every 2-3 minutes, if the person does not wake up or breathing is not improved. 1 Each 5 Active HYDROcodone-stephen taminophen (NORCO) 7.5-325 mg TabletIndicatio ns:Left inguinal hernia Take 1 Tablet by mouth every 4 hours as needed for Pain, Break-Through. Max Daily Amount: 6 Tablets 20 Tablet 5 02/20/20 25 Active Problems Problem Noted Date Diagnosed Date Swelling of left testicle 01/12/2024 History of hydrocelectomy 01/12/2024 Benign essential HTN 07/06/2015 Resolved Problems Problem Noted Date Diagnosed Date Resolved Date Pericardial effusion 08/05/2009 024 Chest pain 03/16/2009 01/12/2024 Acute pericarditis, unspecified 03/16/2009 01/12/2024 Encounters Date Type Department Care Team Description 03/04/2025 External Device Data STL ABSTRACTION Provider, Abstract 02/26/2025 External Device Data STL ABSTRACTION Provider, Abstract 02/25/2025 External Device Data STL ABSTRACTION Provider, Abstract 02/21/2025 8:20 AM CDT Telephone Check Up [facility] Spec Surg [address] [place] [phone] Manuel Lim PA-C Postoperative follow-up (Primary Dx) 02/18/2025 External Device Data STL ABSTRACTION Provider, Abstract 02/18/2025 Telephone [facility] Spec [address] [phone] Imtiaz Grace MD Results 02/14/2025 12:01 PM CDT Anesthesia Event [facility] [address] [place] [address] [phone] Jaya Gonzales MD Myers, Nathaniel Logan, AA-C 02/14/2025 11:20 AM CDT - 02/14/2025 1:43 PM CDT Surgery [facility] [address] [place] [address] [phone] Imtiaz Grace MD HERNIA INGUINAL REPAIR ROBOTIC X 02/14/2025 9:13 AM CDT - 02/14/2025 3:27 PM CDT Hospital Encounter [facility] [address] [place] [address] [phone] Imtiaz Grace MD Left inguinal hernia Discharge Disposition: Home or Self Care 02/13/2025 Travel 02/13/2025 Telephone [facility] [address] [phone] Imtiaz Grace MD Surgery (Arrival time) 01/31/2025 2:30 PM CDT Office Visit [address] [place] [address] Shonna Piper, ELL TEACHER Hydrocele in adult (Primary Dx); Hematoma of testis; Left inguinal hernia; Pelvic mass in male 01/31/2025 9:45 AM CDT Office Visit [facility] Spec Surg [address] [place] [address] Imtiaz Grace MD Left inguinal hernia (Primary Dx); Pelvic mass in male 01/31/2025 Orders Only [facility] Spec Surg [address] [place] [address] Imtiaz Grace MD 01/24/2025 12:00 PM CDT - 01/24/2025 11:59 PM CDT Hospital Encounter [facility] CT Scan [place] [address] [place] [phone] July, ELL TEACHER Discharge Disposition: Home or Self Care 01/24/2025 Results Follow-Up [facility] [address] [place] [address] July, ELL TEACHER CT ABDOMEN PELVIS W CONTRAST 01/19/2025 Results Follow-Up [facility] [address] [place] [address] Anastasia Witt, SCOTT GC/CHLAMYDIA/TRICHOM ONAS, UROGENITAL, SYPHILIS SEROLOGY W/REFLEX, ACUTE HEPATITIS PANEL, HIV DETECTION W/REFLX CONFIRMATION 01/17/2025 3:00 PM CDT Office Visit [facility] [address] [place] [address] Anastasia Witt, SCOTT Abnormal ultrasound (Primary Dx); Left hydrocele; Left inguinal hernia; Screening for STDs (sexually transmitted diseases) 01/16/2025 Results Follow-Up [facility] [address] [place] [address] July, ELL TEACHER US ABDOMEN LIMITED 01/15/2025 6:30 PM CDT - 01/15/2025 11:59 PM CDT Hospital Encounter [facility] [address] [place] [phone] July, ELL TEACHER Discharge Disposition: Home or Self Care 12/23/2024 Telephone [facility] [address] [place] [address] Nisreen Burris DO insurance card 12/20/2024 3:20 PM CDT Office Visit [facility] [address] [place] [address] July, ELL TEACHER Left hydrocele (Primary Dx); Groin pain, left from Last 3 Months Social History Tobacco Use Types Packs/Day Years Used Date Smoking Tobacco: Never Passive Smoke Exposure: Never Tobacco Cessation:Counseling Given: No Alcohol Use Standard Drinks/Week Comments Yes 0 (1 standard drink = 0.6 oz pur e alcohol) Feeling Safe Answer Date Recorded Are you in a relationship wi th someone who hurts you emotionally and/or physically? No 02/14/2025 Sex and Gender Information Value Date Recorded Sex Assigned at Male 01/04/2023 5:34 PM CDT Legal Sex Male 3:20 AM COLUMNIST Gender Identity Male 01/04/2023 5:34 PM CDT Sexual Orientation Straight 04/03/2023 12 :38 PM COLUMNIST Last Filed Vital Signs Vital Sign Reading Time Taken Comments Blood Pressure 156/83 02/14/2025 2:50 PM CDT Pulse 51 02/14/2025 2:50 PM CDT Temperature 36.7 C (98 F) 02/14/2025 2:21 PM CDT Respiratory Rate 16 02/14/2025 2:50 PM CDT Oxygen Saturation 100% 02/14/2025 2:50 PM CDT Inhaled Oxygen Concentration - - Weight 114.8 kg (253 lb) 02/14/2025 9:24 AM CDT Height 195.6 cm (6' 5 ) 02/14/2025 9:24 AM CDT Body Mass Index 30 02/14/2025 9:24 AM CDT Plan of Treatment Upcoming Encounters Date Type Department Care Team (Late st Contact Info) Description 03/25/2025 3:20 PM COLUMNIST Office Visit [facility] Medicine [place] [address] [place] [address] Anastasia Witt, [facility] [address] [place] [facility] [place] [place] [place] [address] 08/01/2025 2:30 PM CDT Office Visit [facility] Urology [address] [place] [address] PiperShonna heath, [facility] [address] [place] [address] Health Maintenance Due Date Last Done Comments DTAP/TDAP/TD VACCINES (1 - Tdap) 2000 HEPATITIS B VACCINES (1 of 3 - 19+ 3-dose series) 10/30 HPV VACCINES (1 - 3-dose SCDM series) 2008 Preventative Visit- Commercial 05/01/2024 01/12/2024 INFLUENZA VACCINE (#1) 2024 Pre-Diabetes and Diabetes Screening 01/11/202701/11 Medical Devices Implanted Type Area French Drawer Device Identifier Shelf Expiration Date Model / Serial / Lot Mesh 3d Max Mid Anatomical 5x7in [id number] [facility] [id number] - [id number] Implanted:Qty: 1 on 02/14/2025 by Imtiaz Grace MD at [facility] Mesh Left: Inguinal BARD DAVOL 06/28/2029 [id number] / / [id number] Procedures Procedure Name Priority Date/Time Associated Diagnosis Comments PATHOLOGY Pathology 02/14/2025 1:03 PM CDT Left inguinal hernia Pelvic mass in male MI ANES INSERT ENDOTRACHEAL AIRWAY Routine 02/14/2025 12:10 PM CDT MESH INSERTION 02/14/2025 11:20 AM CDT Left inguinal hernia Pelvic mass in male MI EXC B9 LESION MRGN XCP SK TG S/N/H/F/G 3.1-4.0CM 02/14/2025 11:20 AM CDT Left inguinal hernia Pelvic mass in male MI LAPAROSCOPY SURG RPR INITIAL INGUINAL HERNIA 02/14/2025 11:20 AM CDT Left inguinal hernia Pelvic mass in male CT ABDOMEN PELVIS W CONTRAST Routine 01/24/2025 1:11 PM CDT Abnormal ultrasound CREATININE Stat 01/24/2025 12:34 PM CDT HIV DETECTION W/REFLX CONFIRMATION Routine 01/17/2025 3:47 PM CDT Screening for STDs (sexually transmitted diseases) ACUTE HEPATITIS PANEL Routine 01/17/2025 3:47 PM CDT Screening for STDs (sexually transmitted diseases) SYPHILIS SEROLOGY W/REFLEX Routine 01/17/2025 3:47 PM CDT Screening for STDs (sexually transmitted diseases) GC/CHLAMYDIA/TRICHOMO DAVE, UROGENITAL Routine 01/17/2025 3:47 PM CDT Screening for STDs (sexually transmitted diseases) US ABDOMEN LIMITED Routine 01/15/2025 7: 19 PM CDT Groin pain, left HEMOGLOBIN A1C Routine 01/12/2024 4:11 PM CDT Normal routine physical examination from Last 3 Months or Most Recently Relevant to Health Maintenance Results * PATHOLOGY (02/14/2025 1:03 PM CDT) CASE REPORT Surgical Pathology Report Case: [id number] Authorizing Provider: Imtiaz Grace MD Collected: 02/14/2025 01:03 PM Ordering Location: [facility] E Received: 02/14/2025 03:24 PM [place] Pathologist: Rafa Lin MD Specimen: Soft Tissue, pelvic mass 9:55 AM CDT [facility] FINAL DIAGNOSIS A. Soft tissue, pelvic mass, excision - fibrosis with marked chronic inflammation. Rafa Lin MD [id number] 9:55 AM CDT [facility] at 0955 CDT GROSS DESCRIPTION A. Received in a container of formalin labeled Carrillo -pelvic mass is a 2.4 x 1.5 x 0.4 cm fragment of yellow-barber to red-brown fibrofatty tissue. Sectioning reveals fibrous cut surfaces with probable inflammatory debris and possible fat necrosis. Farm Adviser cross-sections are submitted in A1. Grossed by: Jess Wilson MS, PA (ASC) 9:55 AM CDT [facility] OPERATIVE PROCEDURE 1: HERNIA INGUINAL REPAIR ROBOTIC X 2: CYST LESION MASS EXCISION 3: MESH INSERTION 9:55 AM CDT [facility] CLINICAL INFORMATION K40.90-Left inguinal hernia R19.00-Pelvic mass in male 9:55 AM CDT [facility] COMMENT The [employer] voice-activated dictation system may have been used in the creation of this report. Inherent to this system is the possibility of errors in syntax, grammar, punctuation, or other areas that could impact interpretation. If there are interpretive questions about the report, please contact the performing pathologist. Unless gross only is specified in the diagnosis, the microscopic examination substantiates the above cited diagnosis. The performance characteristics of all immunohistochemical stains cited in this report (if any) were determined by the Diagnostic Immunohistochemistry Laboratory of [facility] in compliance with CLIA'88 regulations. Some of these tests rely on the use of analyte specific reagents and are subject to specific labeling requirements by the FDA. All controls show appropriate reactivity. This testing was developed by the [facility]ohist[facility] of [facility]. It has not been cleared or approved by the FDA. The FDA has determined that such clearance or approval is not necessary. 9:55 AM CDT [facility] Tissue (Soft Tissue) Collection / Unknown 02/14/2025 1:03 PM CDT 02/14/2025 3:24 PM CDT Comment:Pelvic mass time out of body:1303 Imtiaz Grace MD PATHOLOGY/CYTOLOGY ORDERABLES Fi nal Result [facility] # [id number] [address] [place] [address] [place] [address] * MI ANES INSERT ENDOTRACHEAL AIRWAY (02/14/2025 12:10 PM CDT) Narrative Vargas Walker AA-C - 02/14/2025 12:10 PM CDT Vargas Walker AA-C 02/14/2025 12:31 PM Airway Date/Time: 02/14/2025 12:10 PM Location: OR Plan: routine intubation Patient Identity Confirmed by: Verbally with patient and armband Airway: not difficult Staffing Performed: BROADCAST DIRECTOR OPERATIONS/CAA Authorized by: Jaya Gonzales MD Performed by: Vargas Walker AA-C Indications and Patient Condition: Indications for Airway Management: Anesthesia Sedation Level: general anesthesia Preoxygenated: yes Patient Position: Sniffing Plan to extubate at end of case: Yes Final Airway Details: Final Airway Type: Endotracheal airway ETT Cuffed: Yes Technique Used for Successful ETT Placement: Direct laryngoscopy Blade Type: curved blade Blade Size: 4 Insertion Site: Oral ETT Size (mm): 7.5 Measured from: Teeth Tube secured with: Tape Placement Verified by: auscultation, end tidal CO2 and chest rise Cormack-Lehane Classification: Grade I - full view of glottis Number of Attempts at Approach: 1 Additional Procedure Information: atraumatic Jaya Gonzales MD PROCEDURE/MINOR SURGICAL ORDE RABLES Final Result * CT ABDOMEN PELVIS W CONTRAST (01/24/2025 [...] necrotic mass. Tissue sampling is recommended. July [facility] CT ORDERABLES Final Result * (ABNORMAL) CREATININE (01/24/2025 12:34 PM CDT) CREATININE 1.38(H) 0.67 - 1.17 mg/dL 01/24/2025 12:51 PM CDT [facility] GFR >60 >=60 mL/min/1.7 3 sq meter 01/24/2025 12:51 PM CDT [facility] Comment:eGFR calculated with 2020 CKD-EPI equation. Vegetarian diet, extremely high or low muscle mass, and may affect results. Cystatin C with Glomerular Filtration Rate is a suitable alternative for these patients. Blood Venipuncture / Unknown 01/24/2025 12:34 PM CDT 01/24/2025 12:35 PM CDT July [facility] CHEMISTRY ORDERABLES Final Resul t [facility] CLIA # [id number] [address] [place] [address] * GC/CHLAMYDIA/TRICHOMONAS, UROGENITAL (01/17/2025 3:47 PM CDT) CHLAMYDIA TRACHOMATIS RNA, TMA, UROGENITAL NOT DETECTED NOT DETECTED [facility] NEISSERIA GONORRHOEAE RNA, TMA, UROGENITAL NOT DETECTED NOT DETECTED [facility] COMMENT INFECTIOUS DISEASE [facility] Comment: The analytical performance characteristics of this assay, when used to test SurePath(TM) specimens have been determined by [facility]. The modifications have not been cleared or approved by the FDA. This assay has been validated pursuant to the CLIA regulations and is used for clinical purposes. For additional information, please refer to https://[employer]/faq/MRA496 (This link is being provided for information/ educational purposes only.) TRICHOMONAS VAGINALIS RNA QUAL TMA NOT DETECTED NOT DETECTED [facility] Comment: For additional information, please refer to http://[employer]/ faq/Trichomonastma (This link is being provided for informational/ educational purposes only.) Test Performed at: [facility] [address] [place] [address] Katrina Wynn MD Urine (Urine, 1st catch) 01/17/2025 3:47 PM CDT 01/18/2025 2:41 AM CDT Anastasia Witt [facility] MICROBIOLOGY - GENERAL ORD ERABLES Final Result [facility] [phone] [facility] [address] [place] [address] * SYPHILIS SEROLOGY W/REFLEX (01/17/2025 3:47 PM CDT) T PALLIDUM ANTIBODIES NEGATIVE NEGATIVE [facility] Comment: No antibodies to T. pallidum (the agent causing syphilis) were detected in the specimen. This result, however, does not exclude very recent T. pallidum infection; testing of a second specimen, collected 2-4 weeks after this specimen, is recommended if the index of suspicion for recent infection is high. Test Performed at: [facility] [address] [place] [address] Jhoan Gaitan Blood 01/17/2025 3:47 PM CDT 01/18/2025 3:13 AM CDT Anastasia Witt [facility] CHEMISTRY ORDERABLES Final Result Performing Organization Address City/[facility] Co de Phone Number [facility] [phone] [facility] [address] [place] [address] * HIV DETECTION W/REFLX CONFIRMATION (01/17/2025 3:47 PM CDT) [facility] RESULT HIV NEGATIVE [facility] Comment: [facility] component Name and Code: HIV FINAL INTERPRETATION [[id number]] HIV-1 antigen and HIV-1/HIV-2 antibodies were not detected. There is no laboratory evidence of HIV infection. HIV-1/2 AG AND AB SCREEN NON-REACTIVE NON-REACT OPAL [facility] Comment: Test Performed at: [facility] [address] [place] [address] Katrina Wynn MD Blood 01/17/2025 3:47 PM CDT 01/18/2025 3:13 AM CDT Anastasia Witt [facility] CHEMISTRY ORDERABLES Final Result Performing Organization Address [facility] de Phone Number [facility] [phone] [facility] [address] [place] [address] * ACUTE HEPATITIS PANEL (01/17/2025 3:47 PM CDT) Pathologist [facility] HEPATITIS A IGM NON-REACTI VE NON-REACT OPAL [facility] Comment: For additional information, please refer to http://[employer]/faq/BHF269 (This link is being provided for informational/ educational purposes only.) HEPATITIS B SURFACE AG NON-REACTI VE NON-REACT OPAL [facility] Comment: For additional information, please refer to http://[employer]/faq/MKJ774 (This link is being provided for informational/ educational purposes only.) HEPATITIS B CORE IGM NON-REACTI VE NON-REACT OAPL [facility] Comment: For additional information, please refer to http://[employer]/faq/WTS239 (This link is being provided for informational/ educational purposes only.) HEPATITIS C AB NON-REACTI VE NON-REACT OPAL [facility] Comment: HCV antibody was non-reactive. There is no laboratory evidence of HCV infection. In most cases, no further action is required. However, if recent HCV exposure is suspected, a test for HCV RNA (test code 98702) is suggested. For additional information please refer to http://[employer]/faq/ALC51v3 (This link is being provided for informational/ educational purposes only.) Test Performed at: [facility] [address] [place] [address] Katrina Wynn MD Blood 01/17/2025 3:47 PM CDT 01/18/2025 3:13 AM CDT us Josmainorgiovana Witt ELL TEACHER CHEMISTRY ORDERABLES Final Result Performing Organization Address City/State/[facility] Co de Phone Number [facility] [phone] [facility] [address] [place] [address] * US ABDOMEN LIMITED (01/15/2025 7:19 PM CDT) Anatomical Region Laterality Modality Abdomen Ultrasound 01/15/2025 7:19 PM CDT Impressions 01/16/2025 1:21 PM CDT IMPRESSION: Moderate-sized left inguinal hernia with hernia neck measuring up to 1.5 cm. This may contain nonobstructed bowel during Valsalva. Complex echogenicity mass along the distal left iliac vasculature measuring 4.3 x 2.7 x 2.7 cm. Abnormal lymph node, hematoma, abscess or other neoplasm are all considerations. Recommend further evaluation with contrast-enhanced CT or MRI. Narrative 01/16/2025 1:21 PM CDT Exam: Soft tissue ultrasound of the left inguinal region with grayscale and color Doppler images obtained Reason for exam: Left groin pain Comparison: CT scan dated 08/24/2007 Procedure Note Delon Ross MD - 01/16/2025 Exam: Soft tissue ultrasound of the left inguinal region with grayscale and color Doppler images obtained Reason for exam: Left groin pain Comparison: CT scan dated 08/24/2007 IMPRESSION: Moderate-sized left inguinal hernia with hernia neck measuring up to 1.5 cm. This may contain nonobstructed bowel during Valsalva. Complex echogenicity mass along the distal left iliac vasculature measuring 4.3 x 2.7 x 2.7 cm. Abnormal lymph node, hematoma, abscess or other neoplasm are all considerations. Recommend further evaluation with contrast-enhanced CT or MRI. Alejandrina Mari [facility] US ORDERABLES Final Result * HEMOGLOBIN A1C (01/12/2024 4:11 PM CDT) HEMOGLOBIN A1C 5.6 <5.7 % of total Hgb [facility] Comment: For the purpose of screening for the presence of diabetes: <5.7% Consistent with the absence of diabetes 5.7-6.4% Consistent with increased risk for diabetes (prediabetes) > or =6.5% Consistent with diabetes This assay result is consistent with a decreased risk of diabetes. Currently, no consensus exists regarding use of hemoglobin A1c for diagnosis of diabetes in children. According to [place] Diabetes Association (ADA) guidelines, hemoglobin A1c <7.0% represents optimal control in non- diabetic patients. Different metrics may apply to specific patient populations. Standards of Medical Care in Diabetes(ADA). ESTIMATED AVERAGE GLUCOSE (MG/DL) 114 mg/dL [facility] ESTIMATED AVERAGE GLUCOSE (MMOL/L) 6.3 mmol/L [facility] Comment: This test was performed on the [employer] kandy c503 platform. Effective 07/17/23, a change in test platforms from the [facility] to the [employer]ma kandy c503 may have shifted HbA1c results compared to historical results. Based on laboratory validation testing conducted at [facility], the [employer]ma platform relative to the Cast platform had an average increase in HbA1c value of < or = 0.3%. This difference is within accepted variability established by the National Glycohemoglobin Standardization Program. Note that not all individuals will have had a shift in their results and direct comparisons between historical and current results for testing conducted on different platforms is not recommended. Test Performed at: [facility] [address] [address] Katrina Wynn MD Blood 01/12/2024 4:11 PM CDT 01/13/2024 3:34 AM CDT Josmainorgiovana Witt ELL TEACHER CHEMISTRY ORDERABLES Final Result [facility] [phone] [facility] [address] [place] [address] from Last 3 Months or Most Recently Relevant to Health Maintenance Insurance [facility] [employer] [id number] Advance Directives For more information, please contact: [phone] * Full Code (Latest Code Status on File) Date Activated Date Inactivated Comments 02/14/2025 10:39 AM 02/14/2025 5:32 PM * Full Code Date Activated Date Inactivated Comments 02/14/2025 10:37 AM 02/14/2025 10:39 AM Care Teams Ortho Assistant Relationship Specialty Start Date End Date Nisreen Burris DO [address] [place] [phone] PCP - General 03/06/09
--- OUTSIDE RECORDS SUMMARY | 2025-03-10 15:10 | XMS_ITS | Encounter Summary ---
Author Organization [facility] Address [address] [place] [address] Care Team Providers Care Business Services Officer Name Role Phone Nisreen Burris Primary Care Provider Encounter Details Date Type Department Care Team (Late st Contact Info) Description 04/13/2009 Ancillary Orders [facility] Cardiology- [facility] [address] [place] [phone] Imtiaz Otto MD NO ADDRESS ON FILE Chest Pain Social History Tobacco Use Types Packs/Day Years Used Date Smoking Tobacco: Never Alcohol Use Standard Drinks/Week Comments Yes 0 (1 standard drink = 0.6 oz pur e alcohol) occasional Sex and Gender Information Value Date Recorded Sex Assigned at Not on file Legal Sex Male 6:57 AM BOTTLE TESTER Gender Identity Not on file Sexual Orientation Not on file documented as of this encounter Plan of Treatment Not on file documented as of this encounter Results * ECHOCARDIOGRAM LIMITED (04/13/2009 2:57 PM BOTTLE TESTER) 04/13/2009 2:03 PM BOTTLE TESTER Narrative INTERFACE SYSTEM - 04/14/2009 5:38 PM BOTTLE TESTER [facility] - Cardiology [address] [address] Transthoracic Echocardiogram Patient: Mega Carrillo Study ID: ECHOCARDIOGRAM L Gender: M : 1980 Age: 28 years Location: Room: Height: 77 in ( 196 cm ) Study date: April 13, 2009 Patient status: Weight: 264.44 lb ( 120.2 kg ) Study time: 14: 3 BSA: 2.52 m^2 Referring MD: Clarita Kitchen [id number] Performing MD: Imtiaz Otto MD Retail Sales Teammate: Erica Braswell Ordering: Imtiaz Otto MD Referring MD: Imtiaz Otto MD DIAGNOSES SUPPORTING MEDICAL NECESSITY: Pericardial effusion 423.9 HISTORY: The patient had hypertension. PROCEDURE INFORMATION: A transthoracic limited/follow-up 2D study was performed. Additional evaluation included M-mode, limited spectral Doppler, and color Doppler. This was a routine echocardiographic study. Image quality was adequate. No shunt is identified. SUMMARY AND CONCLUSION: - Image quality was adequate. No shunt is identified. - Overall left ventricular systolic function was normal. The visually estimated LV ejection fraction was around 65 %. There were no left ventricular regional wall motion abnormalities. - Estimated peak pulmonary artery systolic pressure 38 mmHg. COMPARISONS: - Compared to the previous study of February 25, 2009 :The pericardial effusion is resolved and the pulmonary artery systolic pressure is much improved. Cardiac anatomy: LEFT VENTRICLE: Overall left ventricular systolic function was normal. The visually estimated LV ejection fraction was around 65 %. There were no left ventricular regional wall motion abnormalities. MITRAL VALVE: Doppler: There was trivial mitral valvular regurgitation. PERICARDIUM: There was no pericardial effusion. PULMONARY ARTERY: Doppler: Estimated peak pulmonary artery systolic pressure 38 mmHg. Measurement tables: 2D measurements LEFT VENTRICLE NORMAL LVID ed (chordal) 56.5 mm 40-48 mm LVID es (chordal) 30.1 mm 27-35 mm FS (chordal) 47 % >29% LEFT ATRIUM NORMAL LAD S-I es 57 mm 31-68 mm Doppler measurements LVOT, AV, AORTA NORMAL Peak AV velocity 116 cm/sec -- Peak AV gradient 5 mmHg -- RIGHT VENTRICLE NORMAL Tricuspid regurgitant velocity 280 cm/sec -- Estimated RV systolic pressure 41 mmHg <30 mmHg [facility] is accredited with the Inters[employer]etal Commission for the Accreditation of Echocardiography Laboratories (ICAEL) Prepared and Electronically Authenticated Imtiaz Otto MD Confirmed April 14, 2009 17:38:24 Procedure Note Imtiaz Otto MD - 04/14/2009 [facility] - Cardiology [address] [facility] [address] [place] [address] Transthoracic Echocardiogram Patient: Mega Carrillo Study ID: ECHOCARDIOGRAM L Gender: M : 1980 Age: 28 years Location: Room: Height: 77 in ( 196 cm ) Study date: April 13, 2009 Patient status: Weight: 264.44 lb ( 120.2 kg ) Study time: 14: 3 BSA: 2.52 m^2 Referring MD: Clarita Kitchen [id number] W Performing MD: Imtiaz Otto MD Retail Sales Teammate: Erica Braswell Ordering: Imtiaz Otto MD Referring MD: Imtiaz Otto MD DIAGNOSES SUPPORTING MEDICAL NECESSITY: Pericardial effusion 423.9 HISTORY: The patient had hypertension. PROCEDURE INFORMATION: A transthoracic limited/follow-up 2D study was performed. Additional evaluation included M-mode, limited spectral Doppler, and color Doppler. This was a routine echocardiographic study. Image quality was adequate.No shunt is identified. SUMMARY AND CONCLUSION: - Image quality was adequate. No shunt is identified. - Overall left ventricular systolic function was normal. The visually estimated LV ejection fraction was around 65 %. There were no left ventricular regional wall motion abnormalities. - Estimated peak pulmonary artery systolic pressure 38 mmHg. COMPARISONS: - Compared to the previous study of February 25, 2009 :The pericardial effusion is resolved and the pulmonary artery systolic pressure is much improved. Cardiac anatomy: LEFT VENTRICLE: Overall left ventricular systolic function was normal. The visually estimated LV ejection fraction was around 65 %. There were no left ventricular regional wall motion abnormalities. MITRAL VALVE: Doppler: There was trivial mitral valvular regurgitation. PERICARDIUM: There was no pericardial effusion. PULMONARY ARTERY: Doppler: Estimated peak pulmonary artery systolic pressure 38 mmHg. Measurement tables: 2D measurements LEFT VENTRICLE NORMAL LVID ed (chordal) 56.5 mm 40-48 mm LVID es (chordal) 30.1 mm 27-35 mm FS (chordal) 47 % >29% LEFT ATRIUM NORMAL LAD S-I es 57 mm 31-68 mm Doppler measurements LVOT, AV, AORTA NORMAL Peak AV velocity 116 cm/sec -- Peak AV gradient 5 mmHg -- RIGHT VENTRICLE NORMAL Tricuspid regurgitant velocity 280 cm/sec -- Estimated RV systolic pressure 41 mmHg <[address] [facility] is accredited with the [facility] Commission forthe Accreditation of Echocardiography Laboratories (ICAEL) Prepared and Electronically Authenticated Imtiaz Otto MD Confirmed April 14, 2009 17:38:24 us Imtiaz Otto MD ORDERABLES Final Result INTERFACE SYSTEM Refer to clinic/hospital department documented in this encounter Visit Diagnoses Diagnosis Chest pain Chest pain, unspecified documented in this encounter Care Teams Business Services Officer Relationship Specialty Start Date End Date Nisreen Burris DO [address] [place] [phone] PCP - General 03/06/09 documented as of this encounter
--- NOTE | 2025-03-10 15:12 | W.ED.EXTPRO ---
HPI - Extremity Problem General: Chief complaint: Extremity Problem,Nontraumatic Stated complaint: L leg pain Time Seen by Provider: 03/10/25 15:12 Source: patient Mode of arrival: ambulatory Limitations: no limitations History of Present Illness: Patient is a nice 44-year-old male presents to ED today with a complaint of left calf pain. Patient states he has noticed pain in his calf and possibly swelling and a knot over the past few weeks. He did undergo a left inguinal hernia repair at [facility] approximately a month ago. He has since followed up with his surgeon and everything seems to be healing well. He states he never discussed symptoms with his surgeon. He does not complain of chest pain or shortness of breath. No previous DVT/PE. Other than recent surgery, no risk factors for DVT. MD Complaint: extremity pain Onset (ago): week(s) Pain Consistency: constant Location: left and lower extremity Radiation: none Relieving factors: nothing Exacerbating factors: walking Associated symptoms: Reports no associated symptoms; Deny chest pain or fever(s) Context: recent surgery/procedure Related Data Allergies Allergy/AdvReac Type Severity Reaction Status Date / Time morphine Allergy Unknown Verified 03/10/25 15:11 shellfish derived Allergy Unknown Verified 03/10/25 15:11 Review of Systems Const: Denies: fever(s), chills, body aches, fatigue or malaise Card: Denies: chest pain, palpitations, edema, lightheadedness, syncope or pre-syncope Resp: Denies: dyspnea Musc: Reports: extremity pain and extremity swelling; Denies: joint pain, joint swelling or joint redness Skin/Breast: Denies: erythema Neuro: Denies: numbness in extremities, weakness in extremities, sensory changes or difficulty walking Physical Exam Const: COMMON NORMALS: no acute distress, average body habitus, no limitations, healthy appearing, alert and well nourished GENERAL APPEARANCE: cooperative Resp: COMMON NORMALS: normal respiratory effort Cardio: COMMON NORMALS: regular rate and regular rhythm RATE: regular rate RHYTHM: regular rhythm Extremity: COMMON NORMALS: normal to inspection, full ROM, capillary refill normal, no joint enlargement, no clubbing, cyanosis or edema and no pedal edema GENERAL: Yes normal exam except as noted RIGHT LOWER EXTREMITY: Yes lower leg (reports mild tenderness L calf; no obvious edema; - Jose's) Right lower leg: Yes inspection (overall normal inspection L calf; no obvious edema compared to R), Yes palpation (possible small palpable knot/cord present), Yes neurovascular exam (normal) and Yes other (no overlying skin changes) Neuro: COMMON NORMALS: moves all extremities, no focal motor deficits, no sensory deficits noted and gait normal SENSORIUM/ORIENTATION: Yes alert Skin: COMMON NORMALS: no rashes or lesions noted GENERAL SKIN EXAM: no rashes or lesions noted Course Vital Signs: Vital signs: Vital Signs Temperature 97.5 F L 03/10/25 15:02 Pulse Rate 55 L 03/10/25 15:02 Blood Pressure 166/93 03/10/25 15:40 Pulse Oximetry 95 03/10/25 15:40 Oxygen Delivery Me thod Room Air 03/10/25 15:40 MDM - Extremity (Nontraumatic) Medical Decision Making Patient is a nice 44-year-old male here for left calf pain. Risk factor for DVT as he had underwent left inguinal hernia repair approximately a month ago. No other risk factors for DVT/PE. US imaging obtained here in the emergency department with no evidence for DVT. Patient will be allowed discharge. He can follow-up with primary care for continued symptoms. Differential Diagnosis Likely cellulitis, superficial thrombophlebitis, lower extremity edema and deep vein thrombosis of lower extremity Medical Records I reviewed the patient's medical records. XR interpretation done by ED provider, pending radiology final review (per Triston, US tech-negative for DVT; did not visualize obvious superficial thrombus) Discharge Plan Discharge Patient Disposition: Home Clinical Impression: Pain of left calf Condition: Stable Discharge Orders: Discharge ED (Routine); Ordered 03/10/25 Ordered By: Jolynn Maier Referrals: Nisreen Burris DO [Primary Care Provider, Family Practice] Patient Instructions: Patient Portal & Hector Instructions Activity Restrictions/Additional Instructions: As we discussed, your ultrasound today did not show any evidence of a deep vein thrombosis (DVT/ blood clot ). Print Language: Ukrainian Coding Level of Care Code ED Pharmacology Associate for Bre Crowder
--- NOTE | 2025-03-10 15:16 | USCV_ITS ---
CarrilloJose stanleyrebecca Age: 44 Gender: M : 1980 Exam Date: 03/10/2025 15:32 Ordering Phys: Jolynn Maier Technologist: ELVIA [place] [facility] [place]: LT Calf know post hernia surg. HISTORY: Lt calf knot PROCEDURES: Venous duplex imaging was performed in only the left lower extremity. The following venous structures were evaluated: common femoral vein, profunda vein, proximal portion of the greater saphenous vein, superficial femoral vein, and the popliteal vein. In addition, the posterior tibial and peroneal trunk were evaluated. Serial compression, augmentation maneuvers, and spectral Doppler flow evaluation were performed. FINDINGS: Normal 2-D Doppler and augmentation and compressibility throughout the lower extremity venous structures. Additional imaging through the proximal calf veins also reveals no thrombus. Limited evaluation of the greater saphenous vein is patent with no thrombus. CONCLUSIONS No DVT left lower extremity. Dr. Barbara Boothe DO (Electronically Signed) Final Date: 10 March 2025 15:47 S
[2025-03-10 15:40] VITALS: BP 166/93; O2SAT 95
[2025-03-10 15:51] VITALS: BP 166/93; PULSE 57; RESP 17; O2SAT 99
== END 2025-03-10 15:52 | disposition home or self-care (01) ==
PROVIDERS: Emergency Provider Physician Assistant; PCP Family Medicine
DX: M79.605 Pain in left leg (principal)
CPT/HCPCS: 93971; 99284